=== PATIENT | male | born 1990 | race Two or more races ===

== ENCOUNTER 2022-02-09 10:47 | Emergency (ER) | payer OTHER ==
[~2022-02-09] VITALS: Ht 162.6 cm; Wt 50.0 kg
[2022-02-09] MEDS ORDERED: TETRACAINE HCL 0.5% OPTH(EYE) SOLN 4ML EACHEYE ONE (11:45)
[2022-02-09] MEDS ORDERED: FLUORESCEIN SOD OPTH TEST STRIP OP ONE (11:45)
[2022-02-09] MEDS ORDERED: CIP03OS RIGHTEYE (12:11)
[2022-02-09 12:17] VITALS: BP 125/80
== END 2022-02-09 12:24 | disposition home or self-care (01) ==
LOC: ER 10:47
DX: S05.01XA Injury of conjunctiva and corneal abrasion without foreign body, right eye, initial encounter (principal); X58.XXXA Exposure to other specified factors, initial encounter; Y93.01 Activity, walking, marching and hiking; Y92.89 Other specified places as the place of occurrence of the external cause; Y99.8 Other external cause status

== ENCOUNTER 2022-02-21 09:24 | Emergency (ER) | payer OTHER ==
[~2022-02-21] VITALS: Ht 165.1 cm; Wt 51.5 kg
[~2022-02-21 09:24] MED LIST: CIP03OS RIGHTEYE
[2022-02-21 10:25] LABS: Urine WBC None Seen /hpf (0 - 3)
[2022-02-21 10:37] LABS: Urine Bacteria NONE SEEN /hpf (None Seen); Urine Blood Negative /uL (Negative); Urine Specific Gravity 1.007 (1.001-1.035)
[2022-02-21 14:39] VITALS: BP 120/70
== END 2022-02-21 14:53 | disposition home or self-care (01) ==
LOC: ER 09:24
DX: N43.3 Hydrocele, unspecified (principal); Z79.899 Other long term (current) drug therapy
CPT/HCPCS: 76870; 81001